=== PATIENT | female | born 1940 | race Caucasian/White ===

== ENCOUNTER 2020-12-10 07:47 | Emergency (ER) | payer MEDICARE, OTHER ==
[~2020-12-10 07:47] MED LIST: CENTRUM SILVER1 EAC4 PO; MOBIC15 MG PO; NORVASC5 MG PO; PERCOCET 5-3251 EACH PO; PRINIVIL20 MG PO; XARELTO10 MG PO
[2020-12-10 08:35] LABS: BASOPHIL 0.3 % (0-2); HCT 41.5 % (37.0-47.0); HGB 13.9 g/dl (12.5-16.0); LYMPHOCYTE 23.5 % (15-48); MCH 29.8 pg (25.0-31.0); MCHC 33.5 g/dL (32.0-36.0); MCV 88.9 fL (78.0-100.0); MONOCYTE 6.6 % (0-12); MPV 10.8 fL (6.0-9.5); NEUTROPHIL 68.3 % (41-80); NRBC 0; PLT 220 K/uL (150-400); RBC 4.67 M/uL (4.20-5.40); RDW 12.5 % (11.5-14.0); WBC 11.6 K/uL (4.0-10.5)
[2020-12-10 08:54] LABS: BILIRUBIN - TOTAL 0.9 mg/dL (0.2-1.0); BUN/CREAT RATIO (CALC) 17.2 RATIO; CREATININE 1.16 mg/dL (0.51-0.95); POTASSIUM 4.1 mmol/L (3.5-5.1)
[2020-12-10 09:00] LABS: INR 1.03 (0.9-1.2); PROTHROMBIN TIME 12.8 SECONDS (11.4-13.6); PTT 30.6 SECONDS (22.2-34.7)
[2020-12-10] MEDS ORDERED: BENTYL10 MG PO (11:02)
[2020-12-10] MEDS ORDERED: CIPRO500 MG PO (11:02)
[2020-12-10] MEDS ORDERED: METRONIDAZOLE500 MG PO (11:02)
[2021-01-26] MEDS ORDERED: PRINIVIL20 MG PO (08:39)
[2021-01-26] MEDS ORDERED: MULTI FOR HER1 EAC2 PO (08:40)
[2021-01-29] MEDS ORDERED: PROBIOTIC1 EAC1 PO (06:56)
== END 2020-12-10 11:27 | disposition home or self-care (01) ==
LOC: FER 07:47
PROVIDERS: Emergency Medicine
DX: K52.9 Noninfective gastroenteritis and colitis, unspecified (principal); I10 Essential (primary) hypertension
CPT/HCPCS: 36415; 80053; 85025; 85610; 85730; J7030; Q9967